=== PATIENT | female | born 1935 | race Hispanic/Latino ===

== ENCOUNTER → 2018-06-29 | Day surgery (SDC) | payer MEDICARE ==
--- NOTE | 2018-06-24 15:46 | Diagnostic Imaging Report ---
EXAMINATION: CHEST 2 VIEWS INDICATION: Preop . Leg pain COMPARISON: None FINDINGS: TUBES and LINES: None. LUNGS: Lungs are well inflated. Lungs are clear. There is no evidence of pneumonia or pulmonary edema. PLEURA: No pleural effusion or pneumothorax. HEART AND MEDIASTINUM: The cardiomediastinal silhouette is unremarkable. BONES AND SOFT TISSUES: No acute osseous lesion. Soft tissues are unremarkable. UPPER ABDOMEN: No free air under the diaphragm. IMPRESSION: No acute thoracic abnormality. Signed by: Dr. Alfredo Veronica M.D. on 06/24/2018 3:42 PM
[2018-06-24 16:01] LABS: BASOPHILS % 0.5 % (0.0-1.0); EOSINOPHILS # (AUTO) 0.2 (0.0-0.4); EOSINOPHILS % 3.5 % (0.0-6.0); HEMATOCRIT 37.9 % (34.2-44.1); HEMOGLOBIN 12.7 g/dL (12.0-16.0); LYMPHOCYTES # (AUTO) 1.2 (1.0-3.2); LYMPHOCYTES % 17.8 % (18.0-39.1); MEAN CORPUSCULAR HGB CONC 33.5 g/dL (31-35); MEAN CORPUSCULAR VOLUME 92.4 fL (81-99); MONOCYTES # (AUTO) 0.5 (0.2-0.8); MONOCYTES % 7.5 % (4.4-11.3); NEUTROPHILS # (AUTO) 4.7 (2.1-6.9); NEUTROPHILS % 70.4 % (38.7-80.0); PLATELET COUNT 209 x10e3/uL (140-360); RED CELL DISTRIBUTION WIDTH 12.7 % (11.7-14.4)
[~2018-06-29] MED LIST: CEFAZOLIN SOD 1 GM VIAL ONE; DEXAMETHASONE SOD PHOS INJ 4 MG/ML VIAL ONE; EPHEDRINE SULFATE INJ 50 MG/10 ML SYR ONE; FENTANYL CITRATE/PF 100MCG/2 ML INJ ONE; KETOROLAC TROMETHAMINE 30 MG/ML VIAL ONE; LIDOCAINE 2%/ EPINEPHRINE 20ML MDV ONE; LIDOCAINE HCL 2% LOCAL INJ 5 ML SDV VIAL INJ ONE; LISINOPRIL10 MG PO; MIDAZOLAM HCL 2 MG/2 ML VIAL ONE; MUPIROCIN 2% OINT 22 GM TUBE ONE; ONDANSETRON HCL INJ 2 MG/ML VIAL ONE; PHENYLEPHRINE HCL 1% 10 MG/ML VIAL ONE; PROPOFOL IV EMULSION 10 MG/ML 20 ML VIAL ONE; ROPIVACAINE 0.5% 5 MG/ML 30 ML SDV ONE; SEVOFLURANE INHAL SOLN 250 ML PEN BTL ONE; THYROID MED PO; TYLENOL WITH C1 EACH PO
--- NOTE | 2018-06-29 10:33 | Operative Report ---
DATE OF PROCEDURE: June 29, 2018 SMOKE AND FLAME SPECIALIST: Tushar Duran PA-C The patient was brought to the operating room for induction of anesthesia. Throughout this case, my PA's assistance was necessary for retraction of soft tissue and positioning of the extremity. This allows for efficient and technically successful execution of the operation and is considered medically necessary. PREOPERATIVE DIAGNOSIS: Right tibia fracture. POSTOPERATIVE DIAGNOSIS: Right tibia fracture. PROCEDURE: Open reduction internal fixation of right tibia fracture. INDICATIONS: The patient is an 83-year-old lady who has a nondisplaced fracture of her right proximal tibia. The findings and options have been discussed with the patient and her daughter. We plan on open reduction with internal fixation. The risks and benefits have been explained. They state they understand and wish to proceed. DESCRIPTION OF PROCEDURE: The patient was brought to the operating room and placed under general anesthetic. Her right lower extremity was prepped and draped in a sterile manner. A preoperative time out was performed. The extremity was exsanguinated and a proximal tourniquet was inflated to 300 mmHg. A curvilinear incision was made over the proximal lateral aspect of the right leg. The anterior compartment muscles were elevated off the proximal tibia. The fracture remained stable and nondisplaced throughout the case. A [employer] periarticular locking plate was then placed under the proximal tibia. This was seated with a combination of compression and locking screws. Intraoperative x-rays revealed good positioning of the hardware and anatomic reduction of the fracture. The wound was irrigated and closed. The anterior compartment muscle fascia was closed with 0 Vicryl. Subcuticular Vicryl lizbeth were used to close the skin. A sterile bandage and a hinged knee brace were applied. The patient was extubated and transported to the recovery room in stable condition. There was no blood loss. All needle and sponge counts were correct. Job#: [id number]
[2018-06-29 11:20] VITALS: BP 148/74
== END | disposition home or self-care (01) ==
LOC: OR 06:20
PROVIDERS: ATTEND Specialist
DX: S82.234A Nondisplaced oblique fracture of shaft of right tibia, initial encounter for closed fracture (principal); E03.9 Hypothyroidism, unspecified; I10 Essential (primary) hypertension; W10.8XXA Fall (on) (from) other stairs and steps, initial encounter; Y92.008 Other place in unspecified non-institutional (private) residence as the place of occurrence of the external cause; Z01.810 Encounter for preprocedural cardiovascular examination; Z01.812 Encounter for preprocedural laboratory examination; Z01.818 Encounter for other preprocedural examination; Z86.19 Personal history of other infectious and parasitic diseases
CPT/HCPCS: 27758; 36415; 71046; 76000; 85025; 93005; C1713 ×5; C1900; J0690; J1100; J1885; J2001 ×2; J2250; J2370; J2405; J2795

== ENCOUNTER 2018-08-21 21:59 | Emergency (ER) | payer MEDICARE ==
[~2018-08-21] VITALS: Ht 149.9 cm; Wt 52.2 kg
[~2018-08-21 21:59] MED LIST changes: -CEFAZOLIN SOD 1 GM VIAL ONE; -DEXAMETHASONE SOD PHOS INJ 4 MG/ML VIAL ONE; -EPHEDRINE SULFATE INJ 50 MG/10 ML SYR ONE; -FENTANYL CITRATE/PF 100MCG/2 ML INJ ONE; -KETOROLAC TROMETHAMINE 30 MG/ML VIAL ONE; -LIDOCAINE 2%/ EPINEPHRINE 20ML MDV ONE; -LIDOCAINE HCL 2% LOCAL INJ 5 ML SDV VIAL INJ ONE; -MIDAZOLAM HCL 2 MG/2 ML VIAL ONE; -MUPIROCIN 2% OINT 22 GM TUBE ONE; -ONDANSETRON HCL INJ 2 MG/ML VIAL ONE; -PHENYLEPHRINE HCL 1% 10 MG/ML VIAL ONE; -PROPOFOL IV EMULSION 10 MG/ML 20 ML VIAL ONE; -ROPIVACAINE 0.5% 5 MG/ML 30 ML SDV ONE; -SEVOFLURANE INHAL SOLN 250 ML PEN BTL ONE
[2018-08-21] MEDS ORDERED: LISINOPRIL 20 MG TAB ONE (22:27)
[2018-08-21] MEDS ORDERED: LISINOPRIL 10 MG TAB PO ONE (22:30)
[2018-08-21 23:32] VITALS: BP 146/73
== END 2018-08-21 23:57 | disposition home or self-care (01) ==
LOC: ER 21:59
DX: M79.661 Pain in right lower leg (principal); S70.11XA Contusion of right thigh, initial encounter; I10 Essential (primary) hypertension; E03.9 Hypothyroidism, unspecified
CPT/HCPCS: 93971; 99283

== ENCOUNTER 2018-08-31 14:00 | Outpatient (RCR) | payer MEDICARE | END 2018-09-03 | LOC: PT 14:00 | PROVIDERS: ATTEND Specialist | DX: S82.234D Nondisplaced oblique fracture of shaft of right tibia, subsequent encounter for closed fracture with routine healing (principal); Z47.89 Encounter for other orthopedic aftercare | CPT/HCPCS: 97110 ×3; 97162; G8978; G8979 ==

== ENCOUNTER 2018-09-20 15:00 | Outpatient (RCR) | payer MEDICARE | END 2018-10-04 | LOC: PT 15:00 | PROVIDERS: ATTEND Specialist | DX: S82.234D Nondisplaced oblique fracture of shaft of right tibia, subsequent encounter for closed fracture with routine healing (principal) | CPT/HCPCS: 97110 ×7; 97139; 97140; G8978; G8979 ==